=== PATIENT | female | born 1965 | race Caucasian/White ===

== ENCOUNTER 2016-09-11 14:01 | Outpatient (CLI) | payer OTHER | END 2016-09-11 14:02 | disposition home or self-care (01) | DX: Z12.31 Encounter for screening mammogram for malignant neoplasm of breast (principal); Z80.3 Family history of malignant neoplasm of breast ==

== ENCOUNTER 2017-03-24 05:13 | Outpatient (CLI) | payer OTHER | END 2017-03-24 05:14 | disposition home or self-care (01) | LOC: EMS 05:13 | PROVIDERS: ATTEND Surgery | DX: R10.30 Lower abdominal pain, unspecified (principal) | CPT/HCPCS: A0425; A0427 ==

== ENCOUNTER 2017-03-24 05:24 | Emergency (ER) | payer OTHER ==
[2017-03-24] MEDS ORDERED: fentaNYL 100 MCG/2 ML VIAL IVP STA ×2 (05:43→06:49)
[2017-03-24] MEDS ORDERED: DICYCLOMINE 10 MG CAPSULE PO STA (05:43)
[2017-03-24] MEDS ORDERED: ONDANSETRON 4 MG/2 ML VIAL IVP STA ×2 (05:47→09:11)
[2017-03-24] MEDS ORDERED: ONDANSETRON 4 MG/2 ML VIAL ONE ×2 (05:49→09:19)
[2017-03-24] MEDS ORDERED: fentaNYL 100 MCG/2 ML VIAL ONE ×2 (05:49→06:53)
[2017-03-24] MEDS ORDERED: DICYCLOMINE 10 MG CAPSULE PO ONE (05:49)
[2017-03-24 06:52] LABS: BASOPHILS % (AUTO) 0.4 %; EOSINOPHILS # (AUTO) 0.1 10^3/uL (0.0-0.7); EOSINOPHILS % (AUTO) 0.8 %; HCT - HEMATOCRIT 40.8 % (37.0-47.0); HGB - HEMOGLOBIN 13.8 g/dL (12.0-16.0); LYMPHOCYTES # (AUTO) 1.1 10^3/uL (1.5-3.5); LYMPHOCYTES % (AUTO) 10.4 %; MEAN CORPUSCULAR HEMOGLOBIN 33.5 pg (27.0-31.0); MEAN CORPUSCULAR HGB CONC 33.8 g/dL (32.0-36.0); MEAN CORPUSCULAR VOLUME 99.1 fL (81.0-99.0); MEAN PLATELET VOLUME 8.5 fL (7.9-10.8); MONOCYTES # (AUTO) 0.6 10^3/uL (0.0-1.0); MONOCYTES % (AUTO) 5.6 %; NEUTROPHILS # (AUTO) 8.5 10^3/uL (1.5-6.6); NEUTROPHILS % (AUTO) 82.8 %; RED BLOOD COUNT 4.12 10^6/uL (4.20-5.40); RED CELL DISTRIBUTION WIDTH 12.1 % (12.0-15.0); UNCORRECTED WHITE BLOOD COUNT 10.2 x10^3/uL; WHITE BLOOD COUNT 10.2 x10^3/uL (4.8-10.8)
--- NOTE | 2017-03-24 07:05 | ED Physician Documentation ---
PD HPI ABD PAIN - Stated complaint Stated Complaint: CRAMPING/SYNCOPE - Chief complaint Chief Complaint: Abd Pain - History obtained from History obtained from: Patient, EMS - History of Present Illness Timing - onset: How many minutes ago (40) Timing - details: Abrupt onset, Waxing and waning Quality: Cramping, Aching Location: RLQ, LLQ Associated symptoms: Nausea, Near syncope / syncope. No: Fever, Vomiting Similar symptoms before: Has not had sx before Recently seen: Not recently seen - Additional information Additional information: Patient is a 51 year old female with a history of htn who is presenting to the emergency department for abdominal pain and syncope. According to patient and ems, patient was getting ready to get on her boat this morning when she developed severe abdominal pain. Patient states that the pain came on and she almost passed out. patient went away, and then it came back again and did cause the patient to pass out. Upon initial evaluation in the emergency department patient was awake, alert and stated that the pain had gone away again. Review of Systems Constitutional: denies: Fever, Chills Eyes: denies: Loss of vision, Photophobia Ears: denies: Ear pain, Drainage/discharge Nose: denies: Rhinorrhea / runny nose Throat: denies: Dental pain / toothache, Sore throat Cardiac: denies: Chest pain / pressure, Palpitations Respiratory: denies: Dyspnea, Cough GI: reports: Abdominal Pain, Nausea. denies: Vomiting, Constipation, Diarrhea : denies: Dysuria, Frequency, Hesitancy Musculoskeletal: denies: Neck pain, Back pain, Joint pain Neurologic: reports: Syncope. denies: Generalized weakness, Headache, Head injury Psychiatric: denies: Depressed Immunocompromised: denies: Immunocompromised PD PAST MEDICAL HISTORY - Past Medical History Past Medical History: Yes Cardiovascular: Hypertension Respiratory: None Endocrine/Autoimmune: HyPOthyroidism GI: None : None HEENT: None Psych: None Musculoskeletal: None Derm: None - Past Surgical History Ortho: Carpal Tunnel surgery - Present Medications Home Medications: Ambulatory Orders Medication Instructions Recorded Confirmed Hydrochlorothiazide 25 mg PO 12/15/13 12/15/13 Levothyroxine [Synthroid] 100 mcg PO QDAC 12/15/13 12/15/13 Liothyronine Sodium 25 mcg PO 12/15/13 12/15/13 Lisinopril 10 mg PO 12/15/13 12/15/13 - Allergies Allergies/Adverse Reactions: Allergies Allergy/AdvReac Type Severity Reaction Status Date / Time No Known Drug Allergies Allergy Verified 03/24/17 05:31 - Social History Does the pt smoke?: No Smoking Status: Never smoker PD ED PE NORMAL - Vitals Vital signs reviewed: Yes - General General: Alert and oriented X 3, No acute distress - HEENT HEENT: Atraumatic, PERRL - Neck Neck: Supple, no meningeal sign - Cardiac Cardiac: RRR, No murmur - Respiratory Respiratory: No respiratory distress, Clear bilaterally - Derm Derm: Normal color, Warm and dry, No rash - Extremities Extremities: No deformity - Neuro Neuro: Alert and oriented X 3, No motor deficit, No sensory deficit, Normal speech PD ED PE EXPANDED - Abdomen Abdomen: Hyperactive BS, Tender to palpation, Epigastric, Periumbilical. No: Rebound, Guarding Results - Vitals Vitals: Vital Signs - 24 hr 03/24/17 03/24/17 03/24/17 05:28 06:50 06:58 Temperature 36.0 C L Heart Rate 74 77 74 Respiratory 16 15 Rate Blood Pressure 104/69 97/62 97/62 O2 Saturation 100 95 98 Oxygen O2 Source Room air PD MEDICAL DECISION MAKING - ED course Complexity details: reviewed results, re-evaluated patient, d/w patient, d/w family ED course: Patient was seen and examined at bedside. IV access was gained and labs were drawn. patient's pain at initial evaluation was not present. Patient was treated with a fluid bolus. while waiting for labs patient developed pain and was treated with fentanyl and bentyl. Patient had moderate relief. Patient's pain came back again and had to be treated with additional fentanyl. Patient's labs had to be re-drawn. Patient was signed over to Dr. Freeman pending labs and imaging.
[2017-03-24] MEDS ORDERED: SODIUM CHLORIDE 0.9% 1,000 ML IV ONE ×2 (07:09→09:11)
[2017-03-24 07:18] LABS: BILIRUBIN,URINE NEGATIVE (NEGATIVE)
[2017-03-24 07:24] LABS: ALBUMIN/GLOBULIN RATIO 1.5 (1.0-2.2); BILIRUBIN,TOTAL 0.7 mg/dL (0.2-1.0); CALCIUM 8.6 mg/dL (8.5-10.3); CREATININE 0.6 mg/dL (0.4-1.0); POTASSIUM 2.8 mmol/L (3.5-5.0); TOTAL PROTEIN 6.6 g/dL (6.7-8.2)
[2017-03-24 07:34] LABS: HCG UR QUAL NEGATIVE; UA w/ MICROSCOPIC CHARGE YES; UR CULTURE IF IND INDICATED
[2017-03-24] MEDS ORDERED: HYDROmorphone 1 MG/ML SYRINGE IVP STA ×2 (09:11→12:08)
[2017-03-24] MEDS ORDERED: POTASSIUM CHLOR 10 MEQ/100 ML 100 ML IV ONE ×2 (09:12→09:20)
[2017-03-24] MEDS ORDERED: HYDROmorphone 1 MG/ML SYRINGE ONE ×2 (09:19→12:15)
[2017-03-24] MEDS ORDERED: IOPAMIDOL-300 100 ML VIAL IVP ONE (10:04)
[2017-03-24] MEDS ORDERED: PROMETHAZINE INJ 12.5 MG in SODIUM CHLORIDE 0.9% 50 ML IV STA ×2 (10:16→12:08)
[2017-03-24] MEDS ORDERED: PROMETHAZINE 25 MG/1 ML VIAL ONE ×2 (10:34→12:16)
--- NOTE | 2017-03-24 11:01 | CT Preliminary Report ---
Exam: CT Abdomen/Pelvis Angio IMPRESSION: 1. No evidence of acute vascular abnormality. 2. Diffuse mild to moderate colonic wall thickening, most severe near the splenic flexure with severa l adjacent small mesenteric lymph nodes. Findings suggest colitis, most likely infectious or inflamma tory. 3. Lobulated appearance of the uterus, likely related to fibroids. [facility] SITE ID: [id number]
--- NOTE | 2017-03-24 11:04 | CT Report ---
EXAM: CT ANGIOGRAM ABDOMEN AND PELVIS WITH CONTRAST EXAM DATE: 03/24/2017 10:06 AM. CLINICAL HISTORY: Abd. Pain out of proportion to exam. COMPARISONS: None. TECHNIQUE: Routine helical CT angiogram imaging was performed through the abdomen and pelvis in the a rterial phase. IV contrast: 100 cc Isovue-370. Enteric contrast: No. Reconstructions: Coronal, sagitt al, and 3D MIP reconstructions. In accordance with CT protocol optimization, one or more of the following dose reduction techniques w ere utilized for this exam: automated exposure control, adjustment of mA and/or KV based on patient s ize, or use of iterative reconstructive technique. FINDINGS: Vasculature: No aneurysm, dissection, or significant atherosclerotic disease of the abdominal aorta a nd iliac arteries. 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 The visualized mesenteric and aureliano id organ vascular structures are otherwise within normal limits. Lung Bases: Normal. Abdominal Solid Organs: Normal. The liver, spleen, pancreas, adrenal glands, gallbladder and kidneys are normal in size and demonstrate no masses or abnormal enhancement. Peritoneal Cavity: There is a greater than average amount of stool throughout the colon. There is dif fuse mild to moderate colonic wall thickening, most severe near the splenic flexure. The small bowel appears within normal limits. Several small mesenteric lymph nodes are noted. No free fluid, free air , or other focal inflammatory process. The appendix is partially visualized and likely within normal limits. Pelvic Organs: There is a lobulated appearance of the uterus likely related to fibroids. The bladder and visualized pelvic organs are within normal limits. Bones: No significant abnormality. Other: None. IMPRESSION: 1. No evidence of acute vascular abnormality. 2. Diffuse mild to moderate colonic wall thickening, most severe near the splenic flexure with severa l adjacent small mesenteric lymph nodes. Findings suggest colitis, most likely infectious or inflamma tory. 3. Lobulated appearance of the uterus, likely related to fibroids. [facility] Referring Provider Line: [phone] SITE ID: [id number]
--- NOTE | 2017-03-24 11:47 | ED Physician Documentation ---
PD HPI ABD PAIN - Stated complaint Stated Complaint: CRAMPING/SYNCOPE - Chief complaint Chief Complaint: Abd Pain - History obtained from History obtained from: Patient, Family - Additional information Additional information: Please see Dr. Mandujano's report for the patient's initial presentation with abdominal pain. Her care was turned over to me at change of shift pending laboratory results and imaging studies. PD PAST MEDICAL HISTORY - Past Medical History Past Medical History: Yes Cardiovascular: Hypertension Respiratory: None Endocrine/Autoimmune: HyPOthyroidism GI: None : None HEENT: None Psych: None Musculoskeletal: None Derm: None - Past Surgical History Ortho: Carpal Tunnel surgery - Present Medications Home Medications: Ambulatory Orders Medication Instructions Recorded Confirmed Hydrochlorothiazide 25 mg PO 12/15/13 12/15/13 Levothyroxine [Synthroid] 100 mcg PO QDAC 12/15/13 12/15/13 Liothyronine Sodium 25 mcg PO 12/15/13 12/15/13 Lisinopril 10 mg PO 12/15/13 12/15/13 HYDROcod/ACETAM 5/325 [Vicodin 1 - 2 ea PO Q6H PRN #20 tablet 03/24/17 5/325] Potassium Chloride [K-Dur] 20 meq PO DAILY #15 tablet 03/24/17 Promethazine [Phenergan] 25 - 50 mg PO Q6H PRN #10 tab 03/24/17 - Allergies Allergies/Adverse Reactions: Allergies Allergy/AdvReac Type Severity Reaction Status Date / Time No Known Drug Allergies Allergy Verified 03/24/17 05:31 - Social History Does the pt smoke?: No Smoking Status: Never smoker Results - Vitals Vitals: Vital Signs - 24 hr 03/24/17 03/24/17 03/24/17 09:25 11:35 12:34 Heart Rate 80 80 96 Respiratory 20 18 16 Rate Blood Pressure 103/62 105/63 93/57 L O2 Saturation 100 03/24/17 12:40 Heart Rate Respiratory Rate Blood Pressure 111/74 O2 Saturation Oxygen O2 Source Room air - Labs Labs: Laboratory Tests 03/24/17 03/24/17 03/24/17 06:35 06:46 06:46 WBC 10.2 RBC 4.12 L Hgb 13.8 Hct 40.8 MCV 99.1 H MCH 33.5 H MCHC 33.8 RDW 12.1 Plt Count 210 MPV 8.5 Neut # 8.5 H Lymph # 1.1 L [place] # 0.6 Eos # 0.1 Baso # 0.0 Absolute Nucleated RBC 0.00 Nucleated RBCs 0.0 Sodium 133 L Potassium 2.8 L Chloride 101 Carbon Dioxide 25 Anion Gap 7.0 BUN 12 Creatinine 0.6 Estimated GFR (MDRD) 106 Glucose 149 H Lactic Acid Calcium 8.6 Total Bilirubin 0.7 AST 24 ALT 17 Alkaline Phosphatase 41 L B-Natriuretic Peptide Total Protein 6.6 L Albumin 4.0 Globulin 2.6 Albumin/Globulin Ratio 1.5 Lipase 25 Urine Color DARK YELLOW Urine Clarity CLEAR Urine pH 6.0 Ur Specific [place] 1.010 Urine Protein NEGATIVE Urine Glucose (UA) NEGATIVE Urine Ketones NEGATIVE Urine Occult Blood NEGATIVE Urine Nitrite NEGATIVE Urine Bilirubin NEGATIVE Urine Urobilinogen 0.2 (NORMAL) Ur Leukocyte Esterase MODERATE H Urine RBC 0-5 Urine WBC 4-5 Ur Squamous Epith Cells RARE Squamous Urine Bacteria None Seen Urine Casts 3-5 Hyaline Casts Ur Microscopic Review INDICATED Urine Culture Comments INDICATED Urine HCG, Qual NEGATIVE 03/24/17 03/24/17 06:46 10:00 WBC RBC Hgb Hct MCV MCH MCHC RDW Plt Count MPV Neut # Lymph # [place] # Eos # Baso # Absolute Nucleated RBC Nucleated RBCs Sodium Potassium Chloride Carbon Dioxide Anion Gap BUN Creatinine Estimated GFR (MDRD) Glucose Lactic Acid 1.1 Calcium Total Bilirubin AST ALT Alkaline Phosphatase B-Natriuretic Peptide 20 Total Protein Albumin Globulin Albumin/Globulin Ratio Lipase Urine Color Urine Clarity Urine pH Ur Specific [place] Urine Protein Urine Glucose (UA) Urine Ketones Urine Occult Blood Urine Nitrite Urine Bilirubin Urine Urobilinogen Ur Leukocyte Esterase Urine RBC Urine WBC Ur Squamous Epith Cells Urine Bacteria Urine Casts Ur Microscopic Review Urine Culture Comments Urine HCG, Qual - Rads (name of study) CT abd/pelvis angio Radiology: Prelim report reviewed, EMP read contemporaneously, See rad report ( No evidence of acute vascular abnormality. Diffuse mild to moderate colonic wall thickening, most severe near the splenic flexure with several adjacent small mesenteric lymph nodes. Findings suggest colitis, most likely infectious or inflammatory. Lobulated appearance of the uterus, likely related to fibroids.) PD MEDICAL DECISION MAKING - ED course Complexity details: reviewed results, re-evaluated patient, considered differential, d/w patient, d/w family ED course: At change of shift the patient's care was turned over to me by Dr. Mandujano, whose note I refer you to for her initial presentation. Prior to my assuming care, the patient had received fentanyl 50 mcg IV 2, and ondansetron 4 mg IV. At the time of my examination she had periumbilical discomfort, with associated tenderness to palpation. At times her abdominal pain seemed to be out of proportion to the abdominal exam. Given that finding, the possibility of mesenteric ischemia was considered. A CT angiogram of the abdomen and pelvis revealed no evidence of bowel ischemia. It did reveal thickened colonic wall, mostly at the splenic flexure, consistent with colitis. There was no evidence of diverticulitis. Her lab results were mostly unremarkable except for hypokalemia with potassium of 2.8. Her white blood cell count was normal at 10.2. Urinalysis was negative for bacteriuria. Further treatment in the emergency department included administration of normal saline 1100 mL IV, supplemental potassium 10 mEq IV, Dilaudid 1 mg IV 2, Zofran 4 mg IV, and Phenergan 12.5 mg IV 2. Her symptoms did improve throughout the course of time in the emergency department. At the time of discharge her abdomen was relatively benign, with very mild tenderness to palpation, mostly in the left mid abdomen. I discussed with her and her the results of her workup, symptomatic treatment and outpatient follow-up, as well as potentially worrisome signs or symptoms that should prompt reevaluation in the emergency department. She is being discharged with prescription for Vicodin, 20 tablets, Phenergan and supplemental potassium. Her hypokalemia, I suspect is a result of treatment with HCTZ. Departure - Departure Disposition: 01 Home, Self Care Clinical Impression: Colitis, Hypokalemia Abdominal pain Qualifiers: Abdominal location: periumbilical Qualified Code(s): R10.33 - Periumbilical pain Condition: Stable Instructions: ED Abdominal Pain Unkn Cause Follow-Up: Etelvina Pritchett PA-C [Physician No Access] - Prescriptions: Potassium Chloride [K-Dur] 20 meq PO DAILY #15 tablet HYDROcod/ACETAM 5/325 [Vicodin 5/325] 1 - 2 ea PO Q6H PRN #20 tablet PRN Reason: Pain Promethazine [Phenergan] 25 - 50 mg PO Q6H PRN #10 tab PRN Reason: Nausea / Vomiting Comments: Drink plenty of fluids. You can use Vicodin as prescribed if needed for pain. You can use Phenergan as prescribed if needed for nausea. Follow-up with your primary physician within 1 week. Call to schedule appointment. Return to the emergency department if you develop increasing abdominal pain, persistent vomiting, or otherwise worsening symptoms. Discharge Date/Time: 03/24/17 12:47
[2017-03-24 12:41] VITALS: BP 111/74
== END 2017-03-24 12:47 | disposition home or self-care (01) ==
LOC: EDUNIT# → ED 05:24
DX: K52.9 Noninfective gastroenteritis and colitis, unspecified (principal); E87.6 Hypokalemia; R10.33 Periumbilical pain; I10 Essential (primary) hypertension; E03.9 Hypothyroidism, unspecified
CPT/HCPCS: 36415; 74174; 80053; 81001; 81025; 83605; 83690; 83880; 85025; 87086; 93005; 96365; 96366; 96375; 96376; 99284; A9270; J1170; J7040; Q9967; 81003

== ENCOUNTER 2017-04-16 13:11 | Outpatient (CLI) | payer OTHER ==
[2017-04-16 19:24] LABS: TOTAL T3 1.29 ng/mL (0.87-1.78)
[2017-04-16 19:38] LABS: THYROID STIMULATING HORMONE < 0.08 uIU/mL (0.34-5.60)
== END 2017-04-16 13:12 | disposition home or self-care (01) ==
LOC: LAB.F 13:11
PROVIDERS: ATTEND Physician Assistant
DX: I10 Essential (primary) hypertension (principal); R55 Syncope and collapse; E03.9 Hypothyroidism, unspecified
CPT/HCPCS: 36415; 84439; 84443; 84480; 84481; 84482

== ENCOUNTER 2017-08-09 09:39 | Outpatient (CLI) | payer OTHER ==
[2017-08-09 19:03] LABS: ALBUMIN/GLOBULIN RATIO 1.4 (1.0-2.2); BILIRUBIN,TOTAL 0.7 mg/dL (0.2-1.0); CALCIUM 9.1 mg/dL (8.5-10.3); CREATININE 0.6 mg/dL (0.4-1.0); POTASSIUM 3.6 mmol/L (3.5-5.0); TOTAL PROTEIN 7.6 g/dL (6.7-8.2)
== END 2017-08-09 09:40 | disposition home or self-care (01) ==
LOC: LAB.F 09:39
PROVIDERS: ATTEND Physician Assistant
DX: Z00.00 Encounter for general adult medical examination without abnormal findings (principal); I10 Essential (primary) hypertension
CPT/HCPCS: 36415; 80053

== ENCOUNTER 2017-09-12 10:28 | Outpatient (CLI) | payer OTHER ==
--- NOTE | 2017-09-13 18:10 | Mammography Report ---
DATE OF SERVICE: 09/12/2017 DIGITAL SCREENING MAMMOGRAM: 09/12/2017 CLINICAL INDICATION: A 52-year-old nulliparous patient with family history of breast cancer for screening. COMPARISON: 08/2016, 08/2015, 08/2014, 07/2014, 07/2013, 05/2012, 03/2011, 01/2010. TECHNIQUE: Routine CC and MLO projections were obtained of the breasts. The breasts again demonstrate heterogeneously dense fibroglandular parenchyma bilaterally. Punctate, typically benign calcifications are present. No suspicious masses, clustered microcalcifications, or regions of architectural distortion are identified. IMPRESSION: Benign findings. RECOMMENDATIONS: Routine annual screening unless otherwise clinically indicated. BIRADS category 2 benign findings. STANDARD QUALIFYING STATEMENTS 1. This examination was reviewed with the aid of Computed-Aided Detection (CAD). 2. A negative or benign imaging report should not delay biopsy if clinically suspicious findings are present. Consider surgical consultation if warranted. More than 5% of cancers are not identified by imaging. 3. Dense breasts may obscure an underlying neoplasm. TD: 09/13/2017 19:09
== END 2017-09-12 10:29 | disposition home or self-care (01) ==
LOC: DI 10:28
PROVIDERS: ATTEND Physician Assistant
DX: Z12.31 Encounter for screening mammogram for malignant neoplasm of breast (principal); Z80.3 Family history of malignant neoplasm of breast
CPT/HCPCS: 77067

== ENCOUNTER 2018-01-28 08:27 | Outpatient (CLI) | payer OTHER ==
[2018-01-28 11:58] LABS: THYROID STIMULATING HORMONE < 0.08 uIU/mL (0.34-5.60)
[2018-01-28 12:00] LABS: FREE T4 (FREE THYROXINE) 0.88 ng/dL (0.58-1.64)
[2018-01-28 12:04] LABS: TOTAL T3 1.23 ng/mL (0.87-1.78)
== END 2018-01-28 08:28 | disposition home or self-care (01) ==
LOC: LAB.F 08:27
PROVIDERS: ATTEND Physician Assistant
DX: E07.9 Disorder of thyroid, unspecified (principal)
CPT/HCPCS: 36415; 84439; 84443; 84480; 84481; 84482

== ENCOUNTER 2018-10-04 08:15 | Outpatient (CLI) | payer OTHER ==
[2018-10-04 13:40] LABS: BASOPHILS % (AUTO) 1.1 %; EOSINOPHILS # (AUTO) 0.2 10^3/uL (0.0-0.7); EOSINOPHILS % (AUTO) 5.5 %; HGB - HEMOGLOBIN 13.9 g/dL (12.0-16.0); LYMPHOCYTES # (AUTO) 1.3 10^3/uL (1.5-3.5); LYMPHOCYTES % (AUTO) 42.2 %; MEAN CORPUSCULAR HEMOGLOBIN 33.4 pg (27.0-31.0); MEAN CORPUSCULAR HGB CONC 33.8 g/dL (32.0-36.0); MEAN CORPUSCULAR VOLUME 98.7 fL (81.0-99.0); MEAN PLATELET VOLUME 9.1 fL (7.9-10.8); MONOCYTES # (AUTO) 0.3 10^3/uL (0.0-1.0); MONOCYTES % (AUTO) 10.7 %; NEUTROPHILS # (AUTO) 1.2 10^3/uL (1.5-6.6); NEUTROPHILS % (AUTO) 40.5 %; PLT - PLATELET COUNT 215 10^3/uL (130-450); RED BLOOD COUNT 4.16 10^6/uL (4.20-5.40)
[2018-10-04 14:14] LABS: ALBUMIN 4.4 g/dL (3.2-5.5); ALBUMIN/GLOBULIN RATIO 1.4 (1.0-2.2); ALKALINE PHOSPHATASE 47 IU/L (42-121); ALT ALANINE AMINOTRANSFERASE 26 IU/L (10-60); AST ASPARTATE AMINOTRANSFERASE 25 IU/L (10-42); BILIRUBIN,TOTAL 0.8 mg/dL (0.2-1.0); BUN - BLOOD UREA NITROGEN 11 mg/dL (6-20); CALCIUM 9.4 mg/dL (8.5-10.3); CARBON DIOXIDE - CO2 27 mmol/L (21-32); CHLORIDE 104 mmol/L (101-111); CHOL/HDL RATIO 2.1 (<4.4); CHOLESTEROL 163 mg/dL; CREATININE 0.5 mg/dL (0.4-1.0); GFR - MDRD 130 (>89); GLUCOSE 93 mg/dL (70-100); HDL CHOLESTEROL 77 mg/dL; LDL CHOLESTEROL,CALCULATED 77 mg/dL; SODIUM 139 mmol/L (135-145); TOTAL PROTEIN 7.6 g/dL (6.7-8.2); VLDL CHOLESTEROL 9 mg/dL
[2018-10-04 14:15] LABS: HB2 TOTAL 14.9 g/dL; HEMOGLOBIN A1C 0.39 g/dL; HEMOGLOBIN A1C % 4.5 % (4.6-6.2)
== END 2018-10-04 08:16 | disposition home or self-care (01) ==
LOC: LAB.F 08:15
PROVIDERS: ATTEND Registered Nurse
DX: E03.9 Hypothyroidism, unspecified (principal); I10 Essential (primary) hypertension; D53.9 Nutritional anemia, unspecified
CPT/HCPCS: 36415; 80053; 80061; 83036; 83721; 84443; 85025

== ENCOUNTER 2018-10-24 12:53 | Outpatient (CLI) | payer OTHER ==
--- NOTE | 2018-10-25 08:52 | DEXA Report ---
Reason: POSTMENOPAUSAL SYNDROME Procedure Date: 10/24/2018 Accession Number: [id number] / [id number] Procedure: DEX - Dexa Spine and/or Hip CPT Code: FULL RESULT: EXAM: Dexa Spine and/or Hip DATE: 10/24/2018 2:06 PM CLINICAL HISTORY: POSTMENOPAUSAL SYNDROME TECHNIQUE: Dual energy x-ray absorptiometry (DXA) was performed on a ncyclo System. Regions measured are the AP Spine, femoral neck, and if needed forearm. COMPARISON: None. In accordance with the International Society for Clinical Densitometry (ISCD) guidelines, data from previous exams may be reanalyzed using current recommendations and techniques. This is done to allow a more accurate basis for comparison with the current study. FINDINGS: The data for the lumbar spine is as follows: BMD (g/cm/cm) T-SCORE Z-SCORE REGION L1 1.279 1.2 2.0 L2 1.286 0.7 1.5 L3 1.254 0.4 1.2 L4 1.252 0.4 1.2 TOTAL 1.266 0.7 1.5 NOTE: All evaluable vertebrae are used for classification The data for the hip is as follows: BMD (g/cm/cm) T-SCORE Z-SCORE REGION Neck 0.812 -1.6 -0.6 TOTAL 0.828 -1.4 -0.7 NOTE: The femoral neck or total proximal femur, whichever is lowest, is used for classification. IMPRESSION: THE WHO CLASSIFICATION BASED ON THE INTERNATIONAL REFERENCE STANDARD IS OSTEOPENIA. THE FRACTURE RISK IS INCREASED. RECOMMENDATION: Patients with diagnosis of osteoporosis or osteopenia should have regular bone mineral density assessment. For those eligible for Medicare, routine testing is allowed once every 2 years. Testing frequency can be increased for patients who have rapidly progressing disease or for those who are receiving medical therapy to restore bone mass. COMMENT: World Health Organization (WHO) definitions for osteoporosis and osteopenia: NORMAL BMD: T-score at -1.0 or higher, fracture risk is low OSTEOPENIA BMD: T-score between -1.0 and -2.5, fracture risk is increased. OSTEOPOROSIS BMD: T-score at -2.5 or lower, fracture risk is high. National Osteoporosis Foundation recommends: 1. Obtain adequate dietary calcium (at least 1200 mg per day) and vitamin D (400-800 international units per day). 2. Participate, as appropriate, in regular weightbearing and muscle-strengthening exercise. 3. Avoid tobacco use and reduce alcohol and caffeine intake. 4. For more detailed information see the website at www.NOF.org.
== END 2018-10-24 12:54 | disposition home or self-care (01) ==
LOC: DI 12:53
PROVIDERS: ATTEND Registered Nurse
DX: M85.89 Other specified disorders of bone density and structure, multiple sites (principal); N95.9 Unspecified menopausal and perimenopausal disorder
CPT/HCPCS: 77080

== ENCOUNTER 2018-10-24 12:54 | Outpatient (CLI) | payer OTHER ==
--- NOTE | 2018-10-25 10:00 | Mammography Report ---
Reason: SCREENING MAMMO Procedure Date: 10/24/2018 Accession Number: [id number] / [id number] Procedure: ANDREW - Screening Mammo w/Khari CPT Code: FULL RESULT: EXAM: Screening Mammo w/Khari DATE: 10/24/2018 2:33 PM CLINICAL HISTORY: Screening encounter. History of nulliparity. Family history of breast cancer in the mother at age 38. TECHNIQUE: Bilateral CC and MLO views were obtained. COMPARISON: 09/12/2017 through 09/01/2014. FINDINGS: The breasts demonstrate scattered fibroglandular densities bilaterally. No suspicious masses, clustered microcalcifications, or regions of architectural distortion are identified. IMPRESSION: Negative examination RECOMMENDATION: Routine annual screening unless otherwise clinically indicated. BIRADS CATEGORY 1: Negative STANDARD QUALIFYING STATEMENTS: 1. This examination was not reviewed with the aid of Computer-Aided Detection (CAD). 2. A negative or benign imaging report should not delay biopsy if clinically suspicious findings are present. Consider surgical consultation if warrented. More than 5% of cancers are not identified by imaging. 3. Dense breasts may obscure an underlying neoplasm. 4. This examination was reviewed with the aid of 3D breast imaging (tomosynthesis).
== END 2018-10-24 12:55 | disposition home or self-care (01) ==
LOC: DI 12:54
DX: Z12.31 Encounter for screening mammogram for malignant neoplasm of breast (principal); Z80.3 Family history of malignant neoplasm of breast
CPT/HCPCS: 77063; 77067

== ENCOUNTER 2019-01-09 10:47 | Outpatient (CLI) | payer OTHER | END 2019-01-09 10:48 | disposition home or self-care (01) | LOC: LAB.F 10:47 | PROVIDERS: ATTEND Registered Nurse | DX: R79.89 Other specified abnormal findings of blood chemistry (principal) | CPT/HCPCS: 36415; 84443 ==

== ENCOUNTER 2019-03-10 10:23 | Day surgery (SDC) | payer OTHER ==
[2019-03-10] MEDS ORDERED: LACTATED RINGERS 1,000 ML IV ONE (10:56)
[2019-03-10] MEDS ORDERED: MIDAZOLAM 2 MG/2 ML VIAL IVP ONE (11:48)
[2019-03-10] MEDS ORDERED: ONDANSETRON 4 MG/2 ML VIAL IVP ONE (11:48)
[2019-03-10] MEDS ORDERED: fentaNYL 250 MCG/5 ML VIAL IVP ONE (11:48)
[2019-03-10] MEDS ORDERED: ONDANSETRON 4 MG/2 ML VIAL ONE (12:03)
[2019-03-10 12:50] VITALS: BP 110/89
== END 2019-03-10 10:24 | disposition home or self-care (01) ==
LOC: SDS 10:23
PROVIDERS: ATTEND Internal Medicine Gastroenterology
PROC: 0DBP8ZZ Excision of Rectum, Via Natural or Artificial Opening Endoscopic (ICD-10-PCS; principal; 2019-03-10 11:45)
DX: Z12.11 Encounter for screening for malignant neoplasm of colon (principal); D12.8 Benign neoplasm of rectum; K57.30 Diverticulosis of large intestine without perforation or abscess without bleeding; I10 Essential (primary) hypertension; Z79.899 Other long term (current) drug therapy; Z80.3 Family history of malignant neoplasm of breast
CPT/HCPCS: 45380; J3010; J7120

== ENCOUNTER 2019-09-12 09:03 | Outpatient (CLI) | payer OTHER ==
[2019-09-12 18:09] LABS: THYROID STIMULATING HORMONE < 0.08 uIU/mL (0.34-5.60)
[2019-09-13 12:50] LABS: HEPATITIS C ANTIBODY NON-REACTIVE (NON-REACTIVE)
[2019-09-14 21:40] LABS: FREE T4 (FREE THYROXINE) 1.04 ng/dL (0.58-1.64)
== END 2019-09-12 09:04 | disposition home or self-care (01) ==
LOC: LAB.S 09:03
PROVIDERS: ATTEND Physician Assistant Medical
DX: Z20.5 Contact with and (suspected) exposure to viral hepatitis (principal); R79.89 Other specified abnormal findings of blood chemistry; E03.9 Hypothyroidism, unspecified
CPT/HCPCS: 36415; 81599; 84439; 84443; 84481; 86803; 87521

== ENCOUNTER 2019-09-30 08:09 | Outpatient (CLI) | payer OTHER ==
--- NOTE | 2019-10-02 08:57 | Mammography Report ---
Reason: ROUTINE MAMMO Procedure Date: 09/30/2019 Accession Number: [id number] / [id number] Procedure: MGS - Screening Mammo Dig Bilat CPT Code: Final Report FULL RESULT: EXAM: Screening Mammo Dig Bilat DATE: 09/30/2019 8:25 AM CLINICAL HISTORY: Routine screening. Nulliparous patient. TECHNIQUE: (B) - Bilateral CC and MLO views were obtained. COMPARISON: 10/24/2018, 09/12/2017, 09/11/2016, 09/03/2015, 09/01/2014, 08/07/2014, 08/01/2013 and 06/07/2012 PARENCHYMAL PATTERN: (D) - The breasts demonstrate heterogeneously dense fibroglandular parenchyma bilaterally. FINDINGS: No significant interval change. There are no suspicious masses, calcifications, or areas of distortion. IMPRESSION: Negative examination. BI-RADS category 1. RECOMMENDATION: (ANNUAL) - Recommend routine annual screening mammography. BI-RADS CATEGORY: (1) - Negative. STANDARD QUALIFYING STATEMENTS: 1. This examination was not reviewed with the aid of Computer-Aided Detection (CAD). 2. A negative or benign imaging report should not preclude biopsy if clinically suspicious findings are present. 3. Dense breasts may obscure an underlying neoplasm. 4. This examination was reviewed without the aid of 3D breast imaging (tomosynthesis).
== END 2019-09-30 08:10 | disposition home or self-care (01) ==
LOC: DI.S 08:09
PROVIDERS: ATTEND Registered Nurse
DX: Z12.31 Encounter for screening mammogram for malignant neoplasm of breast (principal)
CPT/HCPCS: 77067